=== PATIENT | male | born 2000 | race Caucasian/White ===

== ENCOUNTER → 2021-05-05 | Outpatient (CLI) | payer OTHER ==
--- NOTE | 2021-05-05 22:27 | REP ---
INDICATION: TESTIS PAIN LT SIDE COMPARISON: None. TECHNIQUE: Bo scale and color Doppler evaluation using linear and curved array transducer with color Doppler evaluation. FINDINGS: The testicles and epididymi are relatively normal in contour, size, echogenicity, vascularity and overall appearance. Incidental 3.7 x 2.0 x 2.2 mm left epididymal head cyst is identified along with tubular ectasia to the epididymis (nonspecific relatively non pathologic finding). There is no evidence for intratesticular mass lesion, infectious/inflammatory process, or torsion. No obvious hydroceles or varicoceles are identified. Right testicle measures 4.6 x 2.5 x 3.2 cm. Left testicle measures 4.9 x 2.2 x 3.2 cm. IMPRESSION: Relatively normal examination with nonacute findings as described above <Electronically signed by Anastacio Whitney > 05/05/21 [id number]
== END ==
LOC: M RAD 14:05
PROVIDERS: ATTEND Specialist
DX: N45.1 Epididymitis (principal); N43.3 Hydrocele, unspecified

== ENCOUNTER 2022-03-25 18:43 | Emergency (ER) | payer OTHER ==
[~2022-03-25] VITALS: Ht 177.8 cm; Wt 93.8 kg
[2022-03-25 18:44] VITALS: BP 122/66
[2022-03-25] MEDS ORDERED: KETOROLAC TROMETHAMINE 10 MG TAB PO ONE (21:05)
[2022-03-25] MEDS ORDERED: ONDANSETRON 4MG ORAL DISINTEGRATING TAB PO ONE (21:05)
[2022-03-25] MEDS ORDERED: ONDA4TAB6 PO (21:10)
== END 2022-03-25 21:23 | disposition home or self-care (01) ==
LOC: M ED 18:43
DX: S00.83XA Contusion of other part of head, initial encounter (principal); S13.4XXA Sprain of ligaments of cervical spine, initial encounter; W16.92XA Jumping or diving into unspecified water causing other injury, initial encounter; F10.10 Alcohol abuse, uncomplicated; Y92.9 Unspecified place or not applicable; Y93.9 Activity, unspecified; Y99.9 Unspecified external cause status

== ENCOUNTER 2024-10-17 21:28 | Emergency (ER) | payer OTHER ==
[~2024-10-17] VITALS: Ht 177.8 cm; Wt 94.2 kg
[~2024-10-17 21:28] MED LIST: ONDA-282 PO
[2024-10-18 00:54] VITALS: BP 138/80; TEMP 100.4; O2SAT 97
[2024-10-18] MEDS: ACETAMINOPHEN 500 MG TAB PO ONE (00:55)
== END 2024-10-18 00:58 | disposition home or self-care (01) ==
LOC: M ED 21:28
DX: J09.X2 Influenza due to identified novel influenza A virus with other respiratory manifestations (principal); Z79.83 Long term (current) use of bisphosphonates